=== PATIENT | male | born 1950 | race African-American/Black ===

== ENCOUNTER 2018-09-09 10:40 | Inpatient (IN) | payer OTHER ==
[2018-09-09 12:30] VITALS: BMI 18.8
--- NOTE | 2018-09-09 13:54 | HP ---
CIWA Score Nausea/Vomitin Muscle Tremors: 2 Anxiety: 2 Agitation: 2 Paroxysmal Sweats: 1-Minimal Palms Moist Orientation: 0-Oriented Tacttile Disturbances: 1-Very Mild Itch/Numbness Auditory Disturbances: 1-Very Mild Visual Disturbances: 0-None Headache: 2-Mild CIWA-Ar Total Score: 13 - Admission Criteria OASAS Guidelines: Admission for Medically Managed Detox: Requires at least one of the followin. CIWA greater than 12 2. Seizures within the past 24 hours 3. Delirium tremens within the past 24 hours 4. Hallucinations within the past 24 hours 5. Acute intervention needed for co occurring medical disorder 6. Acute intervention needed for co occurring psychiatric disorder 7. Severe withdrawal that cannot be handled at a lower level of care (continued vomiting, continued diarrhea, abnormal vital signs) requiring intravenous medication and/or fluids 8. Patient presents the following: CIWA greater than 12 Admission Criteria Met: Admission criteria met Admission ROS [facility] - HPI Chief Complaint: I am here for detox from alcohol,cocaine,on mmtp 40 mgs/day,last medicated 11/22 hiv sine 1993on meds weight loss multiple admissions but keep relapsing last detox in 12/22 [facility] nicotine dependence 8 cigarette longest sobriety 2 years Allergies/Adverse Reactions: Allergies Allergy/AdvReac Type Severity Reaction Status Date / Time No Known Allergies Allergy Verified 09/09/18 12:41 History of Present Illness: this 67 years old male with alcohol,cocaine dependence,mmtp 40 mgs/day for detox as mentioned in the chief complaint Exam Limitations: No Limitations - Ebola screening Have you traveled outside of the country in the last 21 days: No Have you had contact with anyone from an Ebola affected area: No Have you been sick,other than usual withdrawal symptoms: No - Review of Systems Constitutional: Loss of Appetite, Malaise, Night Sweats, Changes in sleep, Weakness, Unintentional Wgt. Loss EENT: reports: Tearing, Nose Congestion Respiratory: reports: No Symptoms reported, Other (copd) Cardiac: reports: No Symptoms Reported GI: reports: Nausea, Indigestion, Abdominal cramping : reports: No Symptoms Reported Musculoskeletal: reports: Back Pain, Muscle Pain Integumentary: reports: Dryness Neuro: reports: Headache, Tremors Endocrine: reports: No Symptoms Reported Hematology: reports: No Symptoms Reported, See HPI, Anemia, Blood Clots, Easy Bleeding, Other (hiv) Psychiatric: reports: No Sypmtoms Reported, Judgement Intact, Mood/Affect Appropiate, Orientated x3, other Other Systems: Reviewed and Negative Patient History - Patient Medical History Hx Asthma: No Hx Chronic Obstructive Pulmonary Disease (COPD): Yes (on med) Hx Cancer: No Hx Cardiac Disorders: No Hx Congestive Heart Failure: No Hx Hypertension: No Hx Hypercholesterolemia: No Hx Pacemaker: No HX Cerebrovascular Accident: No Hx Seizures: No Hx Dementia: No Hx Diabetes: No Hx Gastrointestinal Disorders: No Hx Liver Disease: No Hx Genitourinary Disorders: No Hx Sexually Transmitted Disorders: No Hx Renal Disease (ESRD): No Hx Thyroid Disease: No Hx Human Immunodeficiency Virus (HIV): Yes (since 1992 on med) Hx Hepatitis C: No Hx Depression: No Hx Suicide Attempt: No Hx Bipolar Disorder: No Hx Schizophrenia: No Other Medical History: no suicidal,no homicidal - Patient Surgical History Past Surgical History: No Hx Neurologic Surgery: No Hx Cataract Extraction: No Hx Cardiac Surgery: No Hx Lung Surgery: No Hx Breast Surgery: No Hx Breast Biopsy: No Hx Abdominal Surgery: No Hx Appendectomy: No Hx Cholecystectomy: No Hx Genitourinary Surgery: No Hx Section: No Hx Orthopedic Surgery: No Hx Hysterectomy: No Anesthesia Reaction: No - PPD History Previous Implant?: Yes Documented Results: Negative w/o proof Implanted On Prior [facility] Admission?: No PPD to be Administered?: Yes - Smoking Cessation Smoking history: Current every day smoker Have you smoked in the past 12 months: Yes Aproximately how many cigarettes per day: 8 Hx Chewing Tobacco Use: No Initiated information on smoking cessation: Yes 'Breaking Loose' booklet given: 09/09/18 - Substance & Tx. History Hx Alcohol Use: Yes Hx Substance Use: Yes Substance Use Type: Alcohol, Cocaine Hx Substance Use Treatment: Yes (last detox [facility] 10/22) - Substances Abused Heroin Route: Inhalation Frequency: Daily Amount used: 3 bags Age of first use: 15 Date of Last Use: 09/09/18 Alcohol-vodka Route: Oral Frequency: Daily Amount used: 2 pts. Age of first use: 17 Date of Last Use: 09/09/18 Cocaine Route: Inhalation Frequency: 1-2 times per week Amount used: 40$ Age of first use: 32 Date of Last Use: 09/04/18 Family Disease History - Family Disease History Family Disease History: Other: Father (alcohol,) Admission Physical Exam [facility] - Vital Signs Vital Signs: Vital Signs - 24 hr 09/09/18 12:28 Temperature 98.5 F Pulse Rate 74 Respiratory 20 Rate Blood Pressure 145/68 - Physical General Appearance: Yes: Moderate Distress, Tremorous, Irritable, Sweating, Anxious HEENTM: Yes: Normal ENT Inspection, Pharynx Normal Respiratory: Yes: Within Normal Limits, Lungs Clear, Normal Breath Sounds Neck: Yes: Within Normal Limits, Supple, Trachea in good position Breast: Yes: Within Normal Limits Cardiology: Yes: Within Normal Limits, Regular Rhythm, Regular Rate, S1, S2 Abdominal: Yes: Within Normal Limits, Normal Bowel Sounds, Non Tender, Flat, Soft Genitourinary: Yes: Within Normal Limits Back: Yes: Muscle Spasm Musculoskeletal: Yes: Back pain, Muscle Pain Extremities: Yes: Tremors 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, Fully Oriented, Motor Strength 5/5 Integumentary: Yes: Dry Lymphatic: Yes: Within Normal Limits - Diagnostic (1) Alcohol dependence with uncomplicated withdrawal Current Visit: Yes Status: Acute (2) Heroin abuse Current Visit: Yes Status: Acute (3) Cocaine abuse Current Visit: Yes Status: Acute (4) Methadone maintenance therapy patient Current Visit: Yes Status: Acute (5) Weight loss Current Visit: Yes Status: Acute (6) HIV (human immunodeficiency virus infection) Current Visit: Yes Status: Acute (7) Nicotine dependence Current Visit: Yes Status: Acute (8) COPD (chronic obstructive pulmonary disease) Current Visit: Yes Status: Acute (9) Weight loss Current Visit: Yes Status: Acute Cleared for Admission [facility] - Detox or Rehab [facility] Level of Care: Medically Managed Detox Regimen/Protocol: Librium [facility] Breath Alcohol Content Breath Alcohol Content: 0 Urine Drug Screen - Results Drug Screen Negative: No Urine Drug Screen Results: OPI-Opiates, MTD-Methadone, FEN-Fentanyl Inpatient Rehab Admission - Rehab Decision to Admit Inpatient rehab admission?: No
[2018-09-09] MEDS ORDERED: hydrOXYzine PAMOATE 25 MG CAPSULE (FP) PO PRN (14:09)
[2018-09-09] MEDS ORDERED: MAG HYDROX/AL HYDROX/SIMETH 30 ML UNIT-DOSE CUP PO PRN (14:09)
[2018-09-09] MEDS ORDERED: MELATONIN 5 MG TABLETS PO PRN (14:09)
[2018-09-09] MEDS ORDERED: MAGNESIUM HYDROX 2400MG/30ML ORAL SUSPENSION 30 ML CUP PO PRN (14:09)
[2018-09-09] MEDS ORDERED: IBUPROFEN 400 MG TABLET (FP) PO PRN (14:09)
[2018-09-09] MEDS ORDERED: ACETAMINOPHEN 325 MG TABLET (FP) PO PRN ×2 (14:09)
[2018-09-09] MEDS ORDERED: MENTHOL/PHENOL 1 EACH UD MM PRN (14:09)
[2018-09-09] MEDS ORDERED: BISMUTH SUBSALICYLATE 524 MG/30 ML UD PO PRN (14:09)
[2018-09-09] MEDS ORDERED: chlordiazePOXIDE HCL 10 MG CAPSULE PO PRN (14:09)
[2018-09-09] MEDS ORDERED: MAGNESIUM CITRATE 300 ML BOTTLE PO PRN (14:09)
[2018-09-09] MEDS ORDERED: IBUPROFEN 600 MG TABLET (FP) PO PRN (14:14)
[2018-09-09] MEDS ORDERED: METHADONE HCL 10 MG TABLET PO ONE (15:00)
[2018-09-09] MEDS: METHOCARBAMOL 500 MG TABLET PO PRN ×2 (15:26→20:29)
--- NOTE | 2018-09-09 15:46 | EKG ---
Test Reason : Blood Pressure : / mmHG Vent. Rate : 075 BPM Atrial Rate : 075 BPM P-R Int : 142 ms QRS Dur : 072 ms QT Int : 374 ms P-R-T Axes : 077 059 072 degrees QTc Int : 417 ms NORMAL SINUS RHYTHM NORMAL ECG NO PREVIOUS ECGS AVAILABLE Confirmed by HOLLY VAUGHN, BERTHA ([id number]) on 09/09/2018 3:46:20 PM Referred By: Confirmed By:BERTHA BARRERA MD
[2018-09-09 19:30] LABS: URINE APPEARANCE CLEAR; URINE BILIRUBIN NEGATIVE (<2.0 mg/dL); URINE COLOR YELLOW; URINE GLUCOSE (UA) NEGATIVE (NEGATIVE); URINE KETONE NEGATIVE (NEGATIVE); URINE LEUK ESTERASE NEGATIVE (NEGATIVE); URINE NITRITE NEGATIVE (NEGATIVE); URINE PROTEIN 1+ (NEGATIVE); URINE UROBILINOGEN 4.0 E.U/dl mg/dL (0.2-1.0)
[2018-09-09 19:40] LABS: URINE MUCUS RARE
[2018-09-09] MEDS: chlordiazePOXIDE HCL 25 MG CAPSULE PO SCH (20:22)
[2018-09-10] MEDS ORDERED: METHADONE HCL 40 MG DISPERSABLE TABLET PO SCH (06:00)
[2018-09-10] MEDS: chlordiazePOXIDE HCL 25 MG CAPSULE PO SCH ×2 (06:18→13:28)
[2018-09-10] MEDS ORDERED: AZITHROMYCIN PO SCH (10:00)
[2018-09-10] MEDS ORDERED: [UNRECOGNIZED DRUG - OTHER] PO SCH (10:00)
--- NOTE | 2018-09-10 10:16 | PN ---
S CIWA - CIWA Score Nausea/Vomitin Muscle Tremors: 2 Anxiety: 2 Agitation: 2 Paroxysmal Sweats: 1-Minimal Palms Moist Orientation: 0-Oriented Tacttile Disturbances: 1-Very Mild Itch/Numbness Auditory Disturbances: 1-Very Mild Visual Disturbances: 0-None Headache: 2-Mild CIWA-Ar Total Score: 13 [facility] Progress Note (SOAP) Subjective: alert,irritable,anxious,interrupted sleep,tremor Objective: 09/10/18 10:15 Vital Signs Temperature 98.2 F 09/10/18 09:47 Pulse Rate 81 09/10/18 09:47 Respiratory Rate 16 09/10/18 09:47 Blood Pressure 144/75 09/10/18 09:47 O2 Sat by Pulse Oximetry (%) 09/10/18 10:16 Laboratory Last Values Urine Color Yellow 09/09/18 16:55 Urine Appearance Clear 09/09/18 16:55 Urine pH 5.0 (5.0-8.0) 09/09/18 16:55 Ur Specific [place] 1.020 (1.010-1.035) 09/09/18 16:55 Urine Protein 1+ (NEGATIVE) H 09/09/18 16:55 Urine Glucose (UA) Negative (NEGATIVE) 09/09/18 16:55 Urine Ketones Negative (NEGATIVE) 09/09/18 16:55 Urine Blood Negative (NEGATIVE) 09/09/18 16:55 Urine Nitrite Negative (NEGATIVE) 09/09/18 16:55 Urine Bilirubin Negative (<2.0 mg/dL) 09/09/18 16:55 Urine Urobilinogen 4.0 e.u/dl mg/dL (0.2-1.0) 09/09/18 16:55 Ur Leukocyte Esterase Negative (NEGATIVE) 09/09/18 16:55 Urine WBC (Auto) None /hpf (3-5) 09/09/18 16:55 Urine RBC (Auto) None /hpf (0-3) 09/09/18 16:55 Urine Mucus Rare 09/09/18 16:55 09/10/18 10:16 labs pending Assessment: 09/10/18 10:16 withdrawal symptom Plan: continue detox
[2018-09-10 10:31] LABS: HEMATOCRIT 38.2 % (35.4-49); HEMOGLOBIN 12.9 GM/dL (11.7-16.9); MCH 33.7 pg (25.7-33.7); MCHC 33.9 g/dl (32.0-35.9); MEAN CELL VOLUME 99.4 fl (80-96); MEAN PLT VOLUME 7.2 fl (7.5-11.1); PLATELET COUNT 256 K/MM3 (134-434); RBC 3.84 M/mm3 (4.00-5.60); RDW 16.6 % (11.9-15.9); WHITE BLOOD COUNT 10.1 K/mm3 (4.0-10.0)
[2018-09-10 10:59] LABS: ALBUMIN 2.9 g/dl (3.4-5.0); ALK PHOS 77 U/L (45-117); ANION GAP 8 MMOL/L (8-16); BILIRUBIN,TOTAL 0.6 mg/dL (0.2-1); BLOOD UREA NITROGEN 15 mg/dL (7-18); CALCIUM 8.6 mg/dL (8.5-10.1); CHLORIDE 107 mmol/L (98-107); CO2 27 mmol/L (21-32); CREATININE 0.9 mg/dL (0.55-1.3); GLUCOSE,RANDOM 69 mg/dL (74-106); POTASSIUM 4.3 mmol/L (3.5-5.1); SGOT/AST 31 U/L (15-37); SGPT/ALT 54 U/L (13-61); SODIUM 142 mmol/L (136-145); TOT PROT 7.2 g/dl (6.4-8.2)
[2018-09-10] MEDS: METHOCARBAMOL 500 MG TABLET PO PRN (10:59)
[2018-09-10] MEDS: PRENATAL VITAMINS W/ FOLIC ACID TABLET (FP) PO SCH (10:59)
[2018-09-10] MEDS: ATOVAQUONE PO SCH (10:59)
[2018-09-10] MEDS: PATIENT'S OWN MEDICATION (NON-FORMULARY) (Darunavir/Cobicistat [Prezcobix 800 Mg-150 Mg Ta PO SCH (11:01)
[2018-09-10] MEDS: PATIENT'S OWN MEDICATION (NON-FORMULARY) (Dolutegravir Sodium [Tivicay] 50 MG) PO SCH (11:02)
[2018-09-10] MEDS: PATIENT'S OWN MEDICATION (NON-FORMULARY) (Emtricitabine/Tenofov Alafenam [Descovy 200-25 M PO SCH (11:03)
[2018-09-10] MEDS: THIAMINE HCL 100 MG TABLET (FP) PO SCH (11:04)
[2018-09-10] MEDS: PATIENT'S OWN MEDICATION (NON-FORMULARY) (Umeclidinium Bromide [Incruse Ellipta] 1 PUFF) IH SCH (11:04)
[2018-09-10 12:11] LABS: SICKLE CELL SCREEN NEGATIVE (NEGATIVE)
[2018-09-10] MEDS: METHADONE HCL 40 MG DISPERSABLE TABLET PO SCH (13:27)
[2018-09-10] MEDS: chlordiazePOXIDE 5 MG CAPSULE PO SCH (22:17)
[2018-09-11] MEDS: chlordiazePOXIDE 5 MG CAPSULE PO SCH ×2 (05:59→14:56)
[2018-09-11] MEDS ORDERED: PATIENT'S OWN MEDICATION (NON-FORMULARY) (Sulfamethoxazole/Trimethoprim [Sulfamethoxazole- PO SCH (10:00)
[2018-09-11] MEDS: PATIENT'S OWN MEDICATION (NON-FORMULARY) (Dolutegravir Sodium [Tivicay] 50 MG) PO SCH (10:55)
[2018-09-11] MEDS: ATOVAQUONE PO SCH (10:55)
[2018-09-11] MEDS: PATIENT'S OWN MEDICATION (NON-FORMULARY) (Emtricitabine/Tenofov Alafenam [Descovy 200-25 M PO SCH (10:55)
[2018-09-11] MEDS: PATIENT'S OWN MEDICATION (NON-FORMULARY) (Darunavir/Cobicistat [Prezcobix 800 Mg-150 Mg Ta PO SCH (10:55)
[2018-09-11] MEDS: PRENATAL VITAMINS W/ FOLIC ACID TABLET (FP) PO SCH (10:55)
[2018-09-11] MEDS: THIAMINE HCL 100 MG TABLET (FP) PO SCH (10:56)
[2018-09-11] MEDS: PATIENT'S OWN MEDICATION (NON-FORMULARY) (Umeclidinium Bromide [Incruse Ellipta] 1 PUFF) IH SCH (10:56)
[2018-09-11] MEDS: METHOCARBAMOL 500 MG TABLET PO PRN (10:56)
--- NOTE | 2018-09-11 13:28 | PN ---
S CIWA - CIWA Score Nausea/Vomitin-No Nausea/No Vomiting Muscle Tremors: 2 Anxiety: 2 Agitation: 2 Paroxysmal Sweats: No Perspiration Orientation: 0-Oriented Tacttile Disturbances: 0-None Auditory Disturbances: 0-None Visual Disturbances: 0-None Headache: 0-None Present CIWA-Ar Total Score: 6 [facility] Progress Note (SOAP) Subjective: leg pain some sweats Objective: 09/11/18 13:27 Vital Signs Temperature 97.0 F L 09/11/18 13:20 Pulse Rate 85 09/11/18 13:20 Respiratory Rate 18 09/11/18 13:20 Blood Pressure 135/79 09/11/18 13:20 O2 Sat by Pulse Oximetry (%) Laboratory Tests 09/09/18 09/10/18 09/10/18 16:55 06:00 06:00 WBC 10.1 H RBC 3.84 L Hgb 12.9 Hct 38.2 MCV 99.4 H MCH 33.7 MCHC 33.9 RDW 16.6 H Plt Count 256 MPV 7.2 L Sickle Cell Screen Negative Sodium 142 Potassium 4.3 Chloride 107 Carbon Dioxide 27 Anion Gap 8 BUN 15 Creatinine 0.9 Creat Clearance w eGFR > 60 Random Glucose 69 L Calcium 8.6 Total Bilirubin 0.6 AST 31 ALT 54 Alkaline Phosphatase 77 Total Protein 7.2 Albumin 2.9 L Urine Color Yellow Urine Appearance Clear Urine pH 5.0 Ur Specific [place] 1.020 Urine Protein 1+ H Urine Glucose (UA) Negative Urine Ketones Negative Urine Blood Negative Urine Nitrite Negative Urine Bilirubin Negative Urine Urobilinogen 4.0 e.u/dl Ur Leukocyte Esterase Negative Urine WBC (Auto) None Urine RBC (Auto) None Urine Mucus Rare RPR Titer 09/10/18 06:00 WBC RBC Hgb Hct MCV MCH MCHC RDW Plt Count MPV Sickle Cell Screen Sodium Potassium Chloride Carbon Dioxide Anion Gap BUN Creatinine Creat Clearance w eGFR Random Glucose Calcium Total Bilirubin AST ALT Alkaline Phosphatase Total Protein Albumin Urine Color Urine Appearance Urine pH Ur Specific [place] Urine Protein Urine Glucose (UA) Urine Ketones Urine Blood Urine Nitrite Urine Bilirubin Urine Urobilinogen Ur Leukocyte Esterase Urine WBC (Auto) Urine RBC (Auto) Urine Mucus RPR Titer Nonreactive labs noted aaox3 ambulating no acute distress Assessment: 09/11/18 13:27 mild withdrawal Plan: continue detox analgesic balm ordered d/c in am
[2018-09-11] MEDS: METHADONE HCL 40 MG DISPERSABLE TABLET PO SCH (14:53)
[2018-09-11] MEDS: METHYL SALICYLATE/MENTHOL OINT 30 GM TUBE TP SCH ×2 (15:41→23:10)
[2018-09-11] MEDS ORDERED: chlordiazePOXIDE HCL 10 MG CAPSULE PO PRN (21:00)
[2018-09-11] MEDS: chlordiazePOXIDE HCL 10 MG CAPSULE PO SCH (23:10)
[2018-09-12 06:17] VITALS: BP 118/71; PULSE 82; TEMP 98.2
[2018-09-12] MEDS: chlordiazePOXIDE HCL 10 MG CAPSULE PO SCH (06:21)
--- NOTE | 2018-09-12 08:31 | DS ---
[facility] Detox Discharge Summary Admission Date: 09/09/18 Discharge Date: 09/12/18 - History Present History: Alcohol Dependence, Cocaine Dependence, MMTP - Physical Exam Results Vital Signs: Vital Signs Temperature 98.2 F 09/12/18 06:00 Pulse Rate 82 09/12/18 06:00 Respiratory Rate 16 09/12/18 06:00 Blood Pressure 118/71 09/12/18 06:00 O2 Sat by Pulse Oximetry (%) - Treatment Hospital Course: Detox Protocol Followed, Detoxed Safely, Responded well, Discharged Condition Good, Rehab Referral Accepted - Medication Discharge Medications: Ambulatory Orders Atovaquone [Mepron -] 2 tsp PO DAILY 09/09/18 Azithromycin [Zithromax -] 1,200 mg PO WEEKLY 09/09/18 Darunavir/Cobicistat [Prezcobix 800 mg-150 mg Tablet] 1 each PO DAILY 09/09/18 Dolutegravir Sodium [Tivicay] 50 mg PO DAILY 09/09/18 Emtricitabine/Tenofov Alafenam [Descovy 200-25 mg Tablet (Nf)] 1 each PO DAILY 09/09/18 Ibuprofen [Motrin -] 600 mg PO TID PRN 09/09/18 Sulfamethoxazole/Trimethoprim [Sulfamethoxazole-Tmp Ds Tablet] 1 each PO ASDIR 09/09/18 Umeclidinium [place] [Incruse Ellipta] 1 puff IH DAILY 09/09/18 - Diagnosis (1) Alcohol dependence with uncomplicated withdrawal Current Visit: Yes Status: Chronic (2) COPD (chronic obstructive pulmonary disease) Current Visit: Yes Status: Acute (3) Cocaine abuse Current Visit: Yes Status: Acute (4) HIV (human immunodeficiency virus infection) Current Visit: Yes Status: Chronic Qualifiers: HIV symptom status: unspecified Qualified Code(s): B20 - Human immunodeficiency virus [HIV] disease (5) Heroin abuse Current Visit: Yes Status: Acute (6) Methadone maintenance therapy patient Current Visit: Yes Status: Chronic (7) Nicotine dependence Current Visit: Yes Status: Chronic Qualifiers: Nicotine product type: cigarettes Substance use status: uncomplicated Qualified Code(s): F17.210 - Nicotine dependence, cigarettes, uncomplicated (8) Weight loss Current Visit: Yes Status: Acute - AMA Did Patient Leave Against Medical Advice: No (pt declined; going back to his MMTP)
== END 2018-09-12 09:51 | disposition home or self-care (01) | DRG 897 ==
LOC: YASAS 10:40 → Y6N 14:33
PROVIDERS: ADMIT Surgery; ATTEND Surgery
PROC: HZ2ZZZZ Detoxification Services for Substance Abuse Treatment (ICD-10-PCS; principal; 2018-09-09)
DX: F10.230 Alcohol dependence with withdrawal, uncomplicated (principal); F11.20 Opioid dependence, uncomplicated; Z68.1 Body mass index [BMI] 19.9 or less, adult; F14.10 Cocaine abuse, uncomplicated; F17.210 Nicotine dependence, cigarettes, uncomplicated; Z21 Asymptomatic human immunodeficiency virus [HIV] infection status; J44.9 Chronic obstructive pulmonary disease, unspecified; R63.4 Abnormal weight loss
CPT/HCPCS: 36415; 80053; 81003; 81015; 85027; 85660; 86593; 93005; 93010

== ENCOUNTER 2019-04-14 10:08 | Inpatient (IN) | payer BC, OTHER ==
[2019-04-14 10:45] VITALS: BMI 20.5
--- NOTE | 2019-04-14 11:35 | HP ---
COWS - Scale Resting Pulse: 0= [place] 80 or Below Sweatin=Flushed/Facial Moisture Restless Observation: 1= Difficult to Sit Still Pupil Size: 1= Pupils >than Normal Bone or Joint Aches: 2= Severe Diffuse Aches Runny Nose/ Eye Tearin= Runny Nose/Eyes GI Upset > 30mins: 1= Stomach Cramp Tremor Observation: 1= Tremor [place], Not Seen Yawning Observation: 1= 1-2x During Session Anxiety or Irritability: 2=Irritable/Anxious Goose Flesh Skin: 3=Piloerection COWS Score: 16 CIWA Score Nausea/Vomitin Muscle Tremors: 1-None Visible, but [place] Anxiety: 3 Agitation: 4-Moderately Restless Paroxysmal Sweats: 3 Orientation: 0-Oriented Tacttile Disturbances: 0-None Auditory Disturbances: 0-None Visual Disturbances: 0-None Headache: 2-Mild (appropriate for detox) CIWA-Ar Total Score: 16 - Admission Criteria OASAS Guidelines: Admission for Medically Managed Detox: Requires at least one of the followin. CIWA greater than 12 2. Seizures within the past 24 hours 3. Delirium tremens within the past 24 hours 4. Hallucinations within the past 24 hours 5. Acute intervention needed for co occurring medical disorder 6. Acute intervention needed for co occurring psychiatric disorder 7. Severe withdrawal that cannot be handled at a lower level of care (continued vomiting, continued diarrhea, abnormal vital signs) requiring intravenous medication and/or fluids 8. Admitting History and Physical - Admission Chief Complaint: " I want to clean up and started having withdrawals." History of Present Illness: 68 year old black male with alcohol dependence and heroin dependence with withdrawals. He is using 3 pints of vodka daily. Last used this morning. He is using 4 bags of heroin intranasally daily. Last used this morning. PMH: HIV disease. COPD Poor coping skills, and homeless. - Smoking History Smoking history: Current every day smoker Have you smoked in the past 12 months: Yes Aproximately how many cigarettes per day: 8 - Alcohol/Substance Use Hx Alcohol Use: Yes Admission ROS S - [facility] Chief Complaint: I want to clean up and started having withdrawals." Allergies/Adverse Reactions: Allergies Allergy/AdvReac Type Severity Reaction Status Date / Time No Known Allergies Allergy Verified 04/14/19 10:38 History of Present Illness: 68 year old black male with alcohol dependence and heroin dependence with withdrawals. He is using 3 pints of vodka daily. Last used this morning. He is using 4 bags of heroin intranasally daily. Last used this morning. PMH: HIV disease. COPD Poor coping skills, and homeless. - Ebola screening Have you traveled outside of the country in the last 21 days: No Have you had contact with anyone from an Ebola affected area: No Have you been sick,other than usual withdrawal symptoms: No Do you have a fever: No - Review of Systems Constitutional: Chills, Unintentional Wgt. Loss EENT: reports: No Symptoms Reported Respiratory: reports: No Symptoms reported Cardiac: reports: No Symptoms Reported GI: reports: No Symptoms Reported : reports: No Symptoms Reported Musculoskeletal: reports: Muscle Pain Integumentary: reports: No Symptoms Reported Neuro: reports: No Symptoms reported Endocrine: reports: No Symptoms Reported Hematology: reports: No Symptoms Reported Psychiatric: reports: Judgement Intact, Mood/Affect Appropiate, Orientated x3 Other Systems: Reviewed and Negative Patient History - Patient Medical History Hx Asthma: No Hx Chronic Obstructive Pulmonary Disease (COPD): Yes (on med) Hx Cancer: No Hx Cardiac Disorders: No Hx Congestive Heart Failure: No Hx Hypertension: No Hx Hypercholesterolemia: No Hx Pacemaker: No HX Cerebrovascular Accident: No Hx Seizures: No Hx Dementia: No Hx Diabetes: No Hx Gastrointestinal Disorders: No Hx Liver Disease: No Hx Genitourinary Disorders: No Hx Sexually Transmitted Disorders: No Hx Renal Disease (ESRD): No Hx Thyroid Disease: No Hx Human Immunodeficiency Virus (HIV): Yes (since 1992 on med) Hx Hepatitis C: No Hx Depression: No Hx Suicide Attempt: No Hx Bipolar Disorder: No Hx Schizophrenia: No - Patient Surgical History Past Surgical History: No Hx Neurologic Surgery: No Hx Cataract Extraction: No Hx Cardiac Surgery: No Hx Lung Surgery: No Hx Breast Surgery: No Hx Breast Biopsy: No Hx Abdominal Surgery: No Hx Appendectomy: No Hx Cholecystectomy: No Hx Genitourinary Surgery: No Hx Section: No Hx Orthopedic Surgery: No Hx Hysterectomy: No Anesthesia Reaction: No - PPD History Previous Implant?: Yes Documented Results: Negative w/proof Implanted On Prior R Admission?: Yes Date: 09/11/18 PPD to be Administered?: No - Smoking Cessation Smoking history: Current every day smoker Have you smoked in the past 12 months: Yes Aproximately how many cigarettes per day: 8 Hx Chewing Tobacco Use: No Initiated information on smoking cessation: Yes 'Breaking Loose' booklet given: 04/14/19 - Substance & Tx. History Hx Alcohol Use: Yes (3 pints daily of vodka) Hx Substance Use: Yes Substance Use Type: Alcohol, Heroin Hx Substance Use Treatment: Yes (last detox 09/2018) - Substances abused Heroin Substance route: Inhalation Frequency: Daily Amount used: 4 bags Age of first use: 15 Date of last use: 04/13/19 Alcohol Substance route: Oral Frequency: Daily Amount used: 2-3 pints vodka Age of first use: 22 Date of last use: 04/13/19 Admission Physical Exam [facility] - Vital Signs Vital Signs: Vital Signs - 24 hr 04/14/19 10:40 Temperature 97.1 F L Pulse Rate 70 Respiratory 18 Rate Blood Pressure 157/83 - Physical General Appearance: Yes: Moderate Distress HEENTM: Yes: EOMI, Hearing grossly Normal, Normocephalic, VIRGILIO, Pharynx Normal, Tm's normal Respiratory: Yes: Chest Non-Tender, Lungs Clear, Normal Breath Sounds, No Accessory Muscle Use Neck: Yes: No masses,lesions,Nodules, Supple, Trachea in good position Breast: Yes: Within Normal Limits Cardiology: Yes: Regular Rhythm, Regular Rate, S1, S2 Abdominal: Yes: Normal Bowel Sounds, Non Tender, Flat, Soft Genitourinary: Yes: Within Normal Limits Back: Yes: Normal Inspection Musculoskeletal: Yes: full range of Motion, Gait Steady Extremities: Yes: Normal Capillary Refill, Normal Inspection, Normal Range of Motion, Non-Tender 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, Fully Oriented, Alert, Motor Strength 5/5, Normal Mood/Affect Integumentary: Yes: Normal Color, Warm Lymphatic: Yes: Within Normal Limits - Diagnostic (1) COPD (chronic obstructive pulmonary disease) Current Visit: Yes Status: Acute (2) Cocaine abuse Current Visit: Yes Status: Acute (3) Alcohol dependence with uncomplicated withdrawal Current Visit: Yes Status: Chronic (4) HIV (human immunodeficiency virus infection) Current Visit: Yes Status: Chronic Qualifiers: HIV symptom status: unspecified Qualified Code(s): B20 - Human immunodeficiency virus [HIV] disease (5) Methadone maintenance therapy patient Current Visit: Yes Status: Chronic (6) Nicotine dependence Current Visit: Yes Status: Chronic Qualifiers: Nicotine product type: cigarettes Substance use status: uncomplicated Qualified Code(s): F17.210 - Nicotine dependence, cigarettes, uncomplicated Cleared for Admission [facility] - Detox or Rehab [facility] Level of Care: Medically Managed Screened but not Admitted - Documentation of Visit Screened but not Admitted: No Breathalyzer - Breathalyzer Breathalyzer: 0 (last used yesterday) Urine Drug Screen - Test Device Lot number: [id number] Expiration date: 12/04/20 - Control Is test valid?: Yes - Results Drug screen NEGATIVE: No Urine drug screen results: FEN-Fentanyl, MOP-Opiates, OXY-Oxycodone, MTD- Methadone Inpatient Rehab Admission - Rehab Decision to Admit Inpatient rehab admission?: No
[2019-04-14] MEDS ORDERED: chlordiazePOXIDE HCL 25 MG CAPSULE PO PRN (11:40)
[2019-04-14] MEDS ORDERED: IBUPROFEN 400 MG TABLET (FP) PO PRN (11:40)
[2019-04-14] MEDS ORDERED: hydrOXYzine PAMOATE 25 MG CAPSULE (FP) PO PRN (11:40)
[2019-04-14] MEDS ORDERED: MAG HYDROX/AL HYDROX/SIMETH 30 ML UNIT-DOSE CUP PO PRN (11:40)
[2019-04-14] MEDS ORDERED: MAGNESIUM CITRATE 300 ML BOTTLE PO PRN (11:40)
[2019-04-14] MEDS ORDERED: BISMUTH SUBSALICYLATE 524 MG/30 ML UD PO PRN (11:40)
[2019-04-14] MEDS ORDERED: MENTHOL/PHENOL 1 EACH UD MM PRN (11:40)
[2019-04-14] MEDS ORDERED: ACETAMINOPHEN 325 MG TABLET (FP) PO PRN ×2 (11:40)
[2019-04-14] MEDS ORDERED: MAGNESIUM HYDROX 2400MG/30ML ORAL SUSPENSION 30 ML CUP PO PRN (11:40)
[2019-04-14] MEDS ORDERED: METHOCARBAMOL 500 MG TABLET PO PRN (11:40)
[2019-04-14] MEDS ORDERED: MELATONIN 5 MG TABLETS PO PRN (11:40)
[2019-04-14] MEDS ORDERED: SULFAMETHOXAZOLE/TRIMETHOPRIM 800MG/160MG D.S. TABLET PO SCH (11:45)
[2019-04-14] MEDS: chlordiazePOXIDE HCL 25 MG CAPSULE PO SCH ×3 (12:48→22:02)
[2019-04-14] MEDS: THIAMINE HCL 100 MG TABLET (FP) PO SCH (22:02)
[2019-04-15] MEDS: chlordiazePOXIDE HCL 25 MG CAPSULE PO SCH ×4 (05:38→22:02)
[2019-04-15] MEDS ORDERED: ALBUTEROL SO4 8 GM HFA INHALER IH PRN (06:26)
[2019-04-15 10:15] LABS: HEMATOCRIT 36.1 % (35.4-49); MCH 32.3 pg (25.7-33.7); MCHC 33.2 g/dl (32.0-35.9); MEAN CELL VOLUME 97.1 fl (80-96); MEAN PLT VOLUME 7.5 fl (7.5-11.1); PLATELET COUNT 195 K/MM3 (134-434); RBC 3.72 M/mm3 (4.00-5.60); RDW 14.5 % (11.9-15.9); WHITE BLOOD COUNT 4.8 K/mm3 (4.0-10.0)
[2019-04-15 10:25] LABS: ALBUMIN 3.3 g/dl (3.4-5.0); BILIRUBIN,TOTAL 1.1 mg/dL (0.2-1); BLOOD UREA NITROGEN 15.3 mg/dL (7-18); CALCIUM 8.9 mg/dL (8.5-10.1); CREATININE 1.1 mg/dL (0.55-1.3); POTASSIUM 4.1 mmol/L (3.5-5.1); TOT PROT 7.8 g/dl (6.4-8.2)
[2019-04-15] MEDS: METHADONE HCL 40 MG DISPERSABLE TABLET PO SCH (10:34)
[2019-04-15] MEDS: PRENATAL VITAMINS W/ FOLIC ACID TABLET (FP) PO SCH (10:34)
[2019-04-15] MEDS: NICOTINE 14 MG/24 HOURS TOPICAL PATCH TD SCH (10:36)
[2019-04-15] MEDS: DOLUTEGRAVIR SODIUM 50 MG TABLET (NON-FORMULARY) PO SCH (11:46)
[2019-04-15] MEDS: PATIENT'S OWN MEDICATION (NON-FORMULARY) (Darunavir/Cob/Emtri/Tenof Alaf 1 EACH) PO SCH (11:46)
--- NOTE | 2019-04-15 17:53 | PN ---
S CIWA - CIWA Score Nausea/Vomitin-No Nausea/No Vomiting Muscle Tremors: None Anxiety: 3 Agitation: 3 Paroxysmal Sweats: 3 Orientation: 0-Oriented Tacttile Disturbances: 0-None Auditory Disturbances: 2-Mild Harshness/Frighten Visual Disturbances: 1-Very Mild Sensitivity Headache: 2-Mild CIWA-Ar Total Score: 14 [facility]HS COWS - Scale Resting Pulse: 0= [place] 80 or Below Sweatin= Chills/Flushing Restless Observation: 1= Difficult to Sit Still Pupil Size: 0= Normal to Room Light Bone or Joint Aches: 2= Severe Diffuse Aches Runny Nose/ Eye Tearin= None GI Upset > 30mins: 0= None Tremor Observation of Outstretched Hands: 0= None Yawning Observation: 1= 1-2x During Session Anxiety or Irritability: 2=Irritable/Anxious Goose Flesh Skin: 3=Piloerection COWS Score: 10 BHS Progress Note (SOAP) Subjective: Anxious, Sweating, Body Aches, H/A. Objective: PATIENT A & O X 3, OBSERVED AMBULATING ON DETOX UNIT UNASSISTED. IN NO ACUTE DISTRESS. 04/15/19 17:52 Vital Signs Temperature 97.7 F 04/15/19 14:18 Pulse Rate 73 04/15/19 14:18 Respiratory Rate 18 04/15/19 14:18 Blood Pressure 116/73 04/15/19 14:18 O2 Sat by Pulse Oximetry (%) Laboratory Tests 04/15/19 04/15/19 04/15/19 08:10 08:10 08:10 WBC 4.8 RBC 3.72 L Hgb 12.0 Hct 36.1 MCV 97.1 H MCH 32.3 MCHC 33.2 RDW 14.5 D Plt Count 195 D MPV 7.5 Sodium 138 Potassium 4.1 Chloride 105 Carbon Dioxide 27 Anion Gap 6 L BUN 15.3 Creatinine 1.1 Est GFR (CKD-EPI)AfAm 80.65 Est GFR (CKD-EPI)NonAf 69.58 Random Glucose 74 Calcium 8.9 Total Bilirubin 1.1 H AST 18 ALT 13 Alkaline Phosphatase 65 Total Protein 7.8 Albumin 3.3 L RPR Titer Nonreactive LABS NOTED. Assessment: 04/15/19 17:52 WITHDRAWAL SYMPTOMS. Plan: CONTINUE DETOX.
[2019-04-15] MEDS: THIAMINE HCL 100 MG TABLET (FP) PO SCH (22:02)
[2019-04-16] MEDS: chlordiazePOXIDE HCL 25 MG CAPSULE PO SCH ×2 (05:29→10:31)
[2019-04-16] MEDS: METHADONE HCL 40 MG DISPERSABLE TABLET PO SCH (05:29)
[2019-04-16] MEDS ORDERED: SULFAMETHOXAZOLE/TRIMETHOPRIM 800MG/160MG D.S. TABLET PO SCH (10:00)
[2019-04-16] MEDS: PATIENT'S OWN MEDICATION (NON-FORMULARY) (Darunavir/Cob/Emtri/Tenof Alaf 1 EACH) PO SCH (10:20)
[2019-04-16] MEDS: PRENATAL VITAMINS W/ FOLIC ACID TABLET (FP) PO SCH (10:20)
[2019-04-16] MEDS: DOLUTEGRAVIR SODIUM 50 MG TABLET (NON-FORMULARY) PO SCH (10:20)
[2019-04-16] MEDS: NICOTINE 14 MG/24 HOURS TOPICAL PATCH TD SCH (10:21)
[2019-04-16] MEDS ORDERED: guaiFENesin 200 MG/10 ML 10 ML UNIT-DOSE CUPS PO PRN (14:58)
--- NOTE | 2019-04-16 15:03 | PN ---
S CIWA - CIWA Score Nausea/Vomitin-No Nausea/No Vomiting Muscle Tremors: 2 Anxiety: 3 Agitation: 1-Slight > Activity Paroxysmal Sweats: 2 Orientation: 2-Disoriented Date<2 days Tacttile Disturbances: 1-Very Mild Itch/Numbness Auditory Disturbances: 0-None Visual Disturbances: 1-Very Mild Sensitivity Headache: 0-None Present CIWA-Ar Total Score: 12 BHS COWS - Scale Resting Pulse: 0= [place] 80 or Below Sweatin= Chills/Flushing Restless Observation: 0= Sits Still Pupil Size: 0= Normal to Room Light Bone or Joint Aches: 1= Mild Discomfort Runny Nose/ Eye Tearin= None GI Upset > 30mins: 0= None Tremor Observation of Outstretched Hands: 2= Slight Tremor Visible Yawning Observation: 1= 1-2x During Session Anxiety or Irritability: 2=Irritable/Anxious Goose Flesh Skin: 3=Piloerection COWS Score: 10 BHS Progress Note (SOAP) Subjective: Anxious, Fatigue, Sweating. Objective: PATIENT A & O X 2 (UNCERTAIN ABOUT CURRENT DAY/ DATE). PATIENT OBSERVED AMBULATING ON DETOX UNIT UNASSISTED. IN NO ACUTE DISTRESS. 04/16/19 15:04 Vital Signs Temperature 97.7 F 04/16/19 13:46 Pulse Rate 63 04/16/19 13:46 Respiratory Rate 18 04/16/19 13:46 Blood Pressure 121/76 04/16/19 13:46 O2 Sat by Pulse Oximetry (%) Laboratory Tests 04/15/19 04/15/19 04/15/19 08:10 08:10 08:10 WBC 4.8 RBC 3.72 L Hgb 12.0 Hct 36.1 MCV 97.1 H MCH 32.3 MCHC 33.2 RDW 14.5 D Plt Count 195 D MPV 7.5 Sodium 138 Potassium 4.1 Chloride 105 Carbon Dioxide 27 Anion Gap 6 L BUN 15.3 Creatinine 1.1 Est GFR (CKD-EPI)AfAm 80.65 Est GFR (CKD-EPI)NonAf 69.58 Random Glucose 74 Calcium 8.9 Total Bilirubin 1.1 H AST 18 ALT 13 Alkaline Phosphatase 65 Total Protein 7.8 Albumin 3.3 L RPR Titer Nonreactive LABS NOTED. 04/16/19 15:16 Assessment: 04/16/19 15:05 WITHDRAWAL SYMPTOMS. 04/16/19 15:17 Plan: CONTINUE DETOX. PATIENT REPORTS THAT CURRENT LIBRIUM DETOX REGIMEN IS CAUSING HIM TO FEEL LETHARGIC. WITH PATIENT'S VERBAL APPROVAL, DETOX MEDICATION REGIMEN TITRATED DOWN RELATIVELY LOWER DOSES AND SCHEDULING.
[2019-04-16] MEDS: chlordiazePOXIDE 5 MG CAPSULE PO SCH ×2 (17:29→22:06)
[2019-04-16] MEDS: THIAMINE HCL 100 MG TABLET (FP) PO SCH (22:06)
[2019-04-17] MEDS ORDERED: chlordiazePOXIDE HCL 10 MG CAPSULE PO PRN
[2019-04-17] MEDS ORDERED: chlordiazePOXIDE HCL 10 MG CAPSULE PO SCH (05:00)
[2019-04-17] MEDS: METHADONE HCL 40 MG DISPERSABLE TABLET PO SCH (07:08)
[2019-04-17] MEDS: PATIENT'S OWN MEDICATION (NON-FORMULARY) (Darunavir/Cob/Emtri/Tenof Alaf 1 EACH) PO SCH (10:05)
[2019-04-17] MEDS: PRENATAL VITAMINS W/ FOLIC ACID TABLET (FP) PO SCH (10:05)
[2019-04-17] MEDS: NICOTINE 14 MG/24 HOURS TOPICAL PATCH TD SCH (10:05)
[2019-04-17] MEDS: DOLUTEGRAVIR SODIUM 50 MG TABLET (NON-FORMULARY) PO SCH (10:05)
[2019-04-17] MEDS: chlordiazePOXIDE HCL 10 MG CAPSULE PO SCH ×2 (10:06→22:53)
--- NOTE | 2019-04-17 12:33 | PN ---
S CIWA - CIWA Score Nausea/Vomitin-No Nausea/No Vomiting Muscle Tremors: None Anxiety: 3 Agitation: 0-Normal Activity Paroxysmal Sweats: 3 Orientation: 0-Oriented Tacttile Disturbances: 0-None Auditory Disturbances: 0-None Visual Disturbances: 0-None Headache: 2-Mild CIWA-Ar Total Score: 8 BHS COWS - Scale Resting Pulse: 0= [place] 80 or Below Sweatin= Chills/Flushing Restless Observation: 1= Difficult to Sit Still Pupil Size: 0= Normal to Room Light Bone or Joint Aches: 2= Severe Diffuse Aches Runny Nose/ Eye Tearin= None GI Upset > 30mins: 0= None Tremor Observation of Outstretched Hands: 0= None Yawning Observation: 1= 1-2x During Session Anxiety or Irritability: 2=Irritable/Anxious Goose Flesh Skin: 0=Smooth Skin COWS Score: 7 S Progress Note (SOAP) Subjective: c/o sweats, anxiety, irritability, headache, and muscle pain. Objective: 04/17/19 12:32 Vital Signs 04/17/19 04/17/19 06:59 09:30 Temperature 97.4 F L 97.8 F Pulse Rate 75 73 Respiratory 18 18 Rate Blood Pressure 97/60 105/60 Lab Results WBC 4.8 K/mm3 (4.0-10.0) 04/15/19 08:10 RBC 3.72 M/mm3 (4.00-5.60) L 04/15/19 08:10 Hgb 12.0 GM/dL (11.7-16.9) 04/15/19 08:10 Hct 36.1 % (35.4-49) 04/15/19 08:10 MCV 97.1 fl (80-96) H 04/15/19 08:10 MCHC 33.2 g/dl (32.0-35.9) 04/15/19 08:10 RDW 14.5 % (11.9-15.9) D 04/15/19 08:10 Plt Count 195 K/MM3 (134-434) D 04/15/19 08:10 Sodium 138 mmol/L (136-145) 04/15/19 08:10 Potassium 4.1 mmol/L (3.5-5.1) 04/15/19 08:10 Chloride 105 mmol/L (98-107) 04/15/19 08:10 Carbon Dioxide 27 mmol/L (21-32) 04/15/19 08:10 Anion Gap 6 MMOL/L (8-16) L 04/15/19 08:10 BUN 15.3 mg/dL (7-18) 04/15/19 08:10 Creatinine 1.1 mg/dL (0.55-1.3) 04/15/19 08:10 Random Glucose 74 mg/dL (74-106) 04/15/19 08:10 Calcium 8.9 mg/dL (8.5-10.1) 04/15/19 08:10 Labs noted. Assessment: 04/17/19 12:32 AOX3, in no acute respiratory distress. Full ROM, ambulating in the unit. Withdrawal symptoms. Plan: continue detox.
[2019-04-17] MEDS: THIAMINE HCL 100 MG TABLET (FP) PO SCH (22:53)
[2019-04-18] MEDS ORDERED: chlordiazePOXIDE HCL 10 MG CAPSULE PO SCH (05:00)
[2019-04-18] MEDS: METHADONE HCL 40 MG DISPERSABLE TABLET PO SCH (05:29)
[2019-04-18] MEDS: PRENATAL VITAMINS W/ FOLIC ACID TABLET (FP) PO SCH (10:07)
[2019-04-18] MEDS: chlordiazePOXIDE 5 MG CAPSULE PO SCH ×2 (10:08→22:06)
[2019-04-18] MEDS: PATIENT'S OWN MEDICATION (NON-FORMULARY) (Darunavir/Cob/Emtri/Tenof Alaf 1 EACH) PO SCH (10:08)
[2019-04-18] MEDS: DOLUTEGRAVIR SODIUM 50 MG TABLET (NON-FORMULARY) PO SCH (10:09)
[2019-04-18] MEDS: NICOTINE 14 MG/24 HOURS TOPICAL PATCH TD SCH (10:09)
--- NOTE | 2019-04-18 11:12 | PN ---
[facility] CIWA - CIWA Score Nausea/Vomitin-No Nausea/No Vomiting Muscle Tremors: None Anxiety: 2 Agitation: 0-Normal Activity Paroxysmal Sweats: 2 Orientation: 0-Oriented Tacttile Disturbances: 0-None Auditory Disturbances: 0-None Visual Disturbances: 0-None Headache: 0-None Present CIWA-Ar Total Score: 4 S COWS - Scale Resting Pulse: 0= [place] 80 or Below Sweatin= Chills/Flushing Restless Observation: 0= Sits Still Pupil Size: 0= Normal to Room Light Bone or Joint Aches: 0= None Runny Nose/ Eye Tearin= None GI Upset > 30mins: 0= None Tremor Observation of Outstretched Hands: 0= None Yawning Observation: 1= 1-2x During Session Anxiety or Irritability: 1=Feels Anxious/Irritable Goose Flesh Skin: 0=Smooth Skin COWS Score: 3 S Progress Note (SOAP) Subjective: c/o mild anxiety and sweats. Objective: 04/18/19 11:10 Vital Signs 04/18/19 04/18/19 04/18/19 03:30 06:31 09:47 Temperature 97 F L 97.8 F Pulse Rate 76 78 Respiratory 18 18 18 Rate Blood Pressure 95/60 99/60 Lab Results WBC 4.8 K/mm3 (4.0-10.0) 04/15/19 08:10 RBC 3.72 M/mm3 (4.00-5.60) L 04/15/19 08:10 Hgb 12.0 GM/dL (11.7-16.9) 04/15/19 08:10 Hct 36.1 % (35.4-49) 04/15/19 08:10 MCV 97.1 fl (80-96) H 04/15/19 08:10 MCHC 33.2 g/dl (32.0-35.9) 04/15/19 08:10 RDW 14.5 % (11.9-15.9) D 04/15/19 08:10 Plt Count 195 K/MM3 (134-434) D 04/15/19 08:10 Sodium 138 mmol/L (136-145) 04/15/19 08:10 Potassium 4.1 mmol/L (3.5-5.1) 04/15/19 08:10 Chloride 105 mmol/L (98-107) 04/15/19 08:10 Carbon Dioxide 27 mmol/L (21-32) 04/15/19 08:10 Anion Gap 6 MMOL/L (8-16) L 04/15/19 08:10 BUN 15.3 mg/dL (7-18) 04/15/19 08:10 Creatinine 1.1 mg/dL (0.55-1.3) 04/15/19 08:10 Random Glucose 74 mg/dL (74-106) 04/15/19 08:10 Calcium 8.9 mg/dL (8.5-10.1) 04/15/19 08:10 Labs noted. Assessment: 04/18/19 11:11 AOX3, in no respiratory distress. Full ROM, ambulating in the unit. Withdrawal symptoms. For d/c tomorrow. Plan: continue detox. D/C in AM.
[2019-04-18] MEDS: THIAMINE HCL 100 MG TABLET (FP) PO SCH (22:06)
[2019-04-19] MEDS ORDERED: chlordiazePOXIDE 5 MG CAPSULE PO ONE (05:00)
[2019-04-19] MEDS ORDERED: chlordiazePOXIDE HCL 10 MG CAPSULE PO ONE (05:00)
[2019-04-19] MEDS: METHADONE HCL 40 MG DISPERSABLE TABLET PO SCH (05:34)
[2019-04-19 09:08] VITALS: BP 117/73; PULSE 75; TEMP 97
--- NOTE | 2019-04-19 18:47 | DS ---
[facility] Detox Discharge Summary Admission Date: 04/14/19 Discharge Date: 04/19/19 - History Present History: Alcohol Dependence, Cocaine Dependence, Opioid Dependence, MMTP Additional Comments: PATIENT RETURNING TO [facility] ([place], [place]) , WHERE HE HAS PREVIOUSLY BEEN A CLIENT FOR AFTERCARE. PATIENT ADVISED TO FOLLOW -UP WITH BOILER ATTENDANT AFTER DISCHARGE FORM DETOX UNIT FOR GENERAL MEDICAL ASSESSMENT AND FOR FEELINGS OF FATIGUE REPORTED WHILE HE WAS ADMITTED FOR DETOX. PATIENT VERBALIZED UNDERSTANDING OF RECOMMENDATION. PATIENT DECLINED OFFER OF MEDICATION PRESCRIPTION FOR HOME MEDICATION AT TIME OF DISCHARGE FROM DETOX, NOTING THAT HE CURRENTLY HAS ADEQUATE SUPPLIES OF ALL PRESCRIBED HOME MEDICATIONS AT HOME. PATIENT WAS DISCHARGED FROM DETOX UNIT IN STABLE MEDICAL CONDITION. Pertinent Past History: C.O.P.D., H.I.V., M.M.T.P., Nicotine Dependence. - Physical Exam Results Vital Signs: Vital Signs Temperature 97.0 F L 04/19/19 09:07 Pulse Rate 75 04/19/19 09:07 Respiratory Rate 16 04/19/19 09:07 Blood Pressure 117/73 04/19/19 09:07 O2 Sat by Pulse Oximetry (%) Pertinent Admission Physical Exam Findings: WITHDRAWAL SYMPTOMS. Laboratory Tests 04/15/19 04/15/19 04/15/19 08:10 08:10 08:10 WBC 4.8 RBC 3.72 L Hgb 12.0 Hct 36.1 MCV 97.1 H MCH 32.3 MCHC 33.2 RDW 14.5 D Plt Count 195 D MPV 7.5 Sodium 138 Potassium 4.1 Chloride 105 Carbon Dioxide 27 Anion Gap 6 L BUN 15.3 Creatinine 1.1 Est GFR (CKD-EPI)AfAm 80.65 Est GFR (CKD-EPI)NonAf 69.58 Random Glucose 74 Calcium 8.9 Total Bilirubin 1.1 H AST 18 ALT 13 Alkaline Phosphatase 65 Total Protein 7.8 Albumin 3.3 L RPR Titer Nonreactive LABS NOTED. - Treatment Hospital Course: Detox Protocol Followed, Detoxed Safely, Responded well, Discharged Condition Good Patient has Accepted a Rehab Referral to: PATIENT RETURNING TO [facility]. - Medication Discharge Medications: Ambulatory Orders Darunavir/Cobicistat [Prezcobix 800 mg-150 mg Tablet] 1 each PO DAILY 09/09/18 Dolutegravir Sodium [Tivicay] 50 mg PO DAILY 09/09/18 Ibuprofen [Motrin -] 600 mg PO TID PRN 09/09/18 Sulfamethoxazole/Trimethoprim [Sulfamethoxazole-Tmp Ds Tablet] 1 each PO ASDIR 09/09/18 Umeclidinium [place] [Incruse Ellipta] 1 puff IH DAILY 09/09/18 Darunavir/Cob/Emtri/Tenof Alaf [Symtuza [id number] mg Tab] 1 each PO DAILY 14 Days #14 tablet 04/18/19 - Diagnosis (1) COPD (chronic obstructive pulmonary disease) Status: Chronic Qualifiers: COPD type: unspecified COPD Qualified Code(s): J44.9 - Chronic obstructive pulmonary disease, unspecified (2) Cocaine abuse Status: Acute (3) Alcohol dependence with uncomplicated withdrawal Status: Acute (4) HIV (human immunodeficiency virus infection) Status: Chronic Qualifiers: HIV symptom status: unspecified Qualified Code(s): B20 - Human immunodeficiency virus [HIV] disease (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 (6) Nicotine dependence Status: Chronic Qualifiers: Nicotine product type: cigarettes Substance use status: uncomplicated Qualified Code(s): F17.210 - Nicotine dependence, cigarettes, uncomplicated - AMA Did Patient Leave Against Medical Advice: No S CIWA - CIWA Score Nausea/Vomitin-No Nausea/No Vomiting Muscle Tremors: None Anxiety: 2 Agitation: 0-Normal Activity Paroxysmal Sweats: No Perspiration Orientation: 0-Oriented Tacttile Disturbances: 0-None Auditory Disturbances: 0-None Visual Disturbances: 0-None Headache: 0-None Present CIWA-Ar Total Score: 2 BHS COWS - Scale Resting Pulse: 0= [place] 80 or Below Sweatin= No chills or Flushing Restless Observation: 1= Difficult to Sit Still Pupil Size: 0= Normal to Room Light Bone or Joint Aches: 1= Mild Discomfort Runny Nose/ Eye Tearin= None GI Upset > 30mins: 0= None Tremor Observation of Outstretched Hands: 0= None Yawning Observation: 1= 1-2x During Session Anxiety or Irritability: 2=Irritable/Anxious Goose Flesh Skin: 0=Smooth Skin COWS Score: 5
== END 2019-04-19 10:21 | disposition home or self-care (01) | DRG 897 ==
LOC: YASAS 10:08 → Y3N 11:31
PROVIDERS: ADMIT Allergy & Immunology; ATTEND Allergy & Immunology
PROC: HZ2ZZZZ Detoxification Services for Substance Abuse Treatment (ICD-10-PCS; principal; 2019-04-14)
DX: F10.230 Alcohol dependence with withdrawal, uncomplicated (principal); F14.20 Cocaine dependence, uncomplicated; F11.23 Opioid dependence with withdrawal; F17.210 Nicotine dependence, cigarettes, uncomplicated; Z21 Asymptomatic human immunodeficiency virus [HIV] infection status; J44.9 Chronic obstructive pulmonary disease, unspecified
CPT/HCPCS: 36415; 80053; 85027; 86593